=== PATIENT | male | born 1990 | race Caucasian/White ===

== ENCOUNTER 2025-01-28 20:15 | Emergency (ER) | payer OTHER ==
[~2025-01-28] VITALS: Ht 170.2 cm; Wt 61.2 kg
[2025-01-28 21:05] LABS: BASOPHILS % 0.6 % (0.0-1.0); EOSINOPHILS % 0.0 % (0.0-6.0); LYMPHOCYTES % 13.0 % (18.0-39.1); MONOCYTES % 9.1 % (4.4-11.3); NEUTROPHILS % 77.2 % (38.7-80.0); RED CELL DISTRIBUTION WIDTH 11.9 % (11.7-14.4)
[2025-01-28 21:26] LABS: EST GLOMERULAR FILTRATION RATE 89.0 ML/MIN (>=60)
[2025-01-28] MEDS: SODIUM CHLORIDE 0.9% 1000ML 1,000 ML IV STA (22:00)
[2025-01-28] MEDS: BELLADONNA ALK/PHENOBARBITAL 5 ML UDC PO STA (22:01)
[2025-01-28] MEDS: MAGNESIUM/ALUMINUM/SIMETHICONE 30 ML UDC PO ONE (22:01)
[2025-01-28] MEDS: LIDOCAINE VISC 2% SOLN 15 ML UDC PO ONE (22:02)
[2025-01-28] MEDS: DICYCLOMINE HCL 20 MG/2 ML VIAL IM ONE (22:02)
[2025-01-28 22:05] LABS: AMPHETAMINES SCREEN,URINE NEGATIVE (NEGATIVE); CANNABINOIDS SCREEN,URINE POSITIVE (NEGATIVE); COCAINE SCREEN,URINE NEGATIVE (NEGATIVE); METHADONE SCREEN, URINE NEGATIVE (NEGATIVE); OPIATES SCREEN,URINE NEGATIVE (NEGATIVE)
[2025-01-28 22:10] LABS: LEUKOCYTE ESTERASE ,URINE NEGATIVE (NEGATIVE); PROTEIN,URINE DIPSTICK 2+ (NEGATIVE); URINE UROBILINOGEN 2 mg/dL (0.2 - 1)
[2025-01-28] MEDS ORDERED: Sodium Chloride 0.9% 50ML Bag ONE (22:15)
[2025-01-28] MEDS ORDERED: IOPAMIDOL 370 MG/ML 100 ML INFUS..BTL INJ ONE (22:15)
[2025-01-28 22:28] LABS: WBC,URINE (MAN) 0-5 /HPF (0-5)
[2025-01-28 22:29] LABS: EPITHELIAL CELLS,URINE FEW /LPF
[2025-01-29] MEDS ORDERED: CEFDINIR300 MG PO (00:07)
[2025-01-29] MEDS ORDERED: ONDANSETRON ODT4 MG PO (00:07)
[2025-01-29 00:08] VITALS: PULSE 67; RESP 19; TEMP 99.1; O2SAT 100
== END 2025-01-29 00:16 | disposition home or self-care (01) ==
LOC: ER 20:40
DX: R11.2 Nausea with vomiting, unspecified (principal); N39.0 Urinary tract infection, site not specified; R10.13 Epigastric pain; F17.210 Nicotine dependence, cigarettes, uncomplicated
CPT/HCPCS: 36415; 74177; 80053; 80307; 81001; 83690; 85025; 99284; J0500; J2470; J7030; Q9967